=== PATIENT | male | born 1970 | race African-American/Black ===

== ENCOUNTER 2019-08-10 02:48 | Emergency (ER) | payer SELFPAY ==
[~2019-08-10] VITALS: Ht 182.9 cm; Wt 82.0 kg
[2019-08-10 03:48] LABS: BASOPHILS % 0.7 % (0.0-2.0); HEMATOCRIT. 38.5 % (42.0-52.0); HEMOGLOBIN. 12.8 g/dL (14.0-18.0); LYMPHOCYTES % 36.6 % (20.0-50.0); MEAN CORPUSCULAR HEMOGLOBIN 31.4 pg (28.0-32.0); MEAN CORPUSCULAR VOLUME 94.1 fL (80.0-94.0); MEAN PLATELET VOLUME 6.9 fl (7.4-10.4); MONOCYTES % 7.3 % (2.0-8.0); NEUTROPHILS % 52.4 % (40.0-76.0); PLATELET 220 x1000/uL (130-400); RED CELL DISTRIBUTION WIDTH 14.2 % (11.6-14.6)
[2019-08-10 03:56] LABS: CHLORIDE 109 mEq/L (98-107)
[2019-08-10 04:00] LABS: ETHANOL BLOOD 131 mg/dL
[2019-08-10] MEDS: POTASSIUM CHLORIDE 20MEQ TABLET SR PO SCH (06:23)
[2019-08-10 06:24] LABS: *AMPHETAMINES SCREEN URINE NEGATIVE (NEGATIVE); *BARBITURATES SCREEN URINE NEGATIVE (NEGATIVE); *BENZODIAZEPINES SCREEN URINE NEGATIVE (NEGATIVE); *COCAINE SCREEN URINE PRESUMTIVE POSITIVE (NEGATIVE)
[2019-08-10 06:25] LABS: CANNABINOID URINE SCREEN PRESUMTIVE POSITIVE (NEGATIVE); METHADONE URINE SCREEN NEGATIVE (NEGATIVE); OPIATES URINE SCREEN NEGATIVE (NEGATIVE); PHENCYCLIDINE URINE SCREEN NEGATIVE (NEGATIVE)
[2019-08-10 08:30] VITALS: BP 115/68
== END 2019-08-10 08:32 | disposition home or self-care (01) ==
LOC: ER 02:48
DX: R55 Syncope and collapse (principal); R07.89 Other chest pain; F12.10 Cannabis abuse, uncomplicated
CPT/HCPCS: 36415; 71045; 80053; 80305; 80320; 83880; 84484; 85025; 93005; 99284; Z7610; G0480